=== PATIENT | male | born 1945 | race Caucasian/White ===

== ENCOUNTER 2019-03-20 07:30 | Outpatient (CLI) | payer OTHER ==
[~2019-03-20 07:30] MED LIST: HUMALOG MIX 50/53 M1; LITHIUM CARBON300 M2; LYRICA50 MG
== END 2019-03-20 07:36 | disposition home or self-care (01) ==
LOC: NUCLEAR 07:30
DX: I48.0 Paroxysmal atrial fibrillation (principal)